=== PATIENT | male | born 1995 | race Caucasian/White ===

== ENCOUNTER 2024-08-27 23:40 | Inpatient (IN) | payer OTHER ==
[~2024-08-27] VITALS: Ht 175.3 cm; Wt 63.7 kg
[2024-08-28] VITALS (8 sets, daily range): PULSE 59–130; RESP 18–28; O2SAT 0–100
[2024-08-28] MEDS ORDERED: MIDAZOLAM HCL 100 MG in DEXT 5% WATER 80 ML IV ONE (00:15)
[2024-08-28] MEDS: PROPOFOL 10MG/ML 100ML 100 ML IV ONE (00:15)
[2024-08-28 00:46] LABS: BASOPHILS % 0.2 % (0.0-2.0); EOSINOPHILS % 0.2 % (0.0-5.0); HEMATOCRIT. 45.5 % (42.0-52.0); HEMOGLOBIN. 14.7 g/dL (14.0-18.0); MEAN CORPUSCULAR HEMOGLOBIN 28.2 pg (28.0-32.0); MEAN CORPUSCULAR HGB CONC 32.3 g/dL (31.0-37.0); MEAN CORPUSCULAR VOLUME 87.2 fL (80.0-94.0); MEAN PLATELET VOLUME 7.4 fl (7.4-10.4); MONOCYTES % 5.5 % (2.0-8.0); NEUTROPHILS % 69.1 % (40.0-76.0); PLATELET 340 x1000/uL (130-400); RED BLOOD CELL COUNT 5.22 mill/uL (4.7-6.1); RED CELL DISTRIBUTION WIDTH 17.8 % (11.6-14.6); WHITE BLOOD COUNT 13.8 x1000/uL (4.5-11.0)
[2024-08-28 00:55] LABS: CLARITY URINE CLEAR (CLEAR); COLOR URINE DARK YELLOW (YELLOW); GLUCOSE URINE NEGATIVE (NEGATIVE); KETONES URINE 1+ (NEGATIVE); LEUKOCYTE ESTERASE URINE NEGATIVE (NEGATIVE); NITRITE URINE NEGATIVE (NEGATIVE); OCCULT BLOOD URINE NEGATIVE (NEGATIVE); PH URINE 5.5 (4.5-8.0); PROTEIN URINE 2+ (NEGATIVE); SPECIFIC GRAVITY URINE 1.034 (1.005-1.030)
[2024-08-28 00:56] LABS: AMMONIA 22 uMol/L (<32)
[2024-08-28] MEDS: ROCURONIUM BROMIDE 10MG/ML VIAL 5ML IV ONE (01:01)
[2024-08-28 01:02] LABS: *AMPHETAMINES SCREEN URINE PRESUMPTIVE POSITIVE (NEGATIVE); *BARBITURATES SCREEN URINE NEGATIVE (NEGATIVE); *BENZODIAZEPINES SCREEN URINE NEGATIVE (NEGATIVE); *COCAINE SCREEN URINE NEGATIVE (NEGATIVE); METHADONE URINE SCREEN NEGATIVE (NEGATIVE); OPIATES URINE SCREEN NEGATIVE (NEGATIVE)
[2024-08-28 01:03] LABS: CANNABINOID URINE SCREEN PRESUMPTIVE POSITIVE (NEGATIVE); CARBON DIOXIDE 18 mEq/L (21-32); CHLORIDE 107 mEq/L (98-107); ECSTASY MDMA SCREEN URINE CONF.TEST INDICATED (NEGATIVE); PHENCYCLIDINE URINE SCREEN NEGATIVE (NEGATIVE); POTASSIUM 3.9 mEq/L (3.5-5.1); SODIUM 139 mEq/L (136-145)
[2024-08-28 01:04] LABS: CALCIUM 9.9 mg/dL (8.7-10.4)
[2024-08-28 01:08] LABS: CREATININE 1.1 mg/dL (0.6-1.3)
[2024-08-28 01:09] LABS: GLUCOSE 131 mg/dL (70-105); UREA NITROGEN BLOOD 14 mg/dL (9-23)
[2024-08-28 01:10] LABS: ACETAMINOPHEN < 2 ug/mL (10-30); ALANINE AMINOTRANSFERASE 22 IU/L (10-49); ALBUMIN 4.4 g/dL (3.2-4.8); ASPARTATE AMINOTRANSFERASE 26 IU/L (<34); CREATINE KINASE 434 IU/L (46-171)
[2024-08-28 01:11] LABS: BILIRUBIN DIRECT 0.1 mg/dL (<=3.0); BILIRUBIN TOTAL 0.4 mg/dL (0.1-1.0); PROTEIN TOTAL 8.7 g/dL (6.0-8.3)
[2024-08-28] MEDS: LORAZEPAM 2MG/ML INJ IV ONE (01:17)
[2024-08-28 01:24] LABS: BG BASE EXCESS -9.4 mmol/L (-2.0-3.0); BG CARBOXYHEMOGLOBIN 0.7 % (0.5-1.5); BG DEOXYHEMOGLOBIN 3.8 % (0.0-5.0); BG FRACTION INSPIRED OXYGEN 30; BG HCO3 ACT 16.6 mmol/L (21.0-28.0); BG METHEMOGLOBIN 0.3 % (0.5-1.5); BG OXYGEN SATURATION 96.2 % (94.0-98.0); BG OXYHEMOGLOBIN 95.2 % (94.0-98.0); BG PCO2 36.7 mmHg (35.0-48.0); BG PH 7.274 (7.350-7.450); BG PO2 98.7 mmHg (83.0-108.0); BG SAMPLE SITE RIGHT BRACHIAL; BG TOTAL HEMOGLOBIN 14.4 g/dL (13.5-17.5); BG VENT MODE VENT - AC
[2024-08-28 01:48] LABS: ETHANOL BLOOD < 10 mg/dL (<10)
[2024-08-28] MEDS ORDERED: MAGNESIUM/ALUMINUM HYDROXIDE/SIMETHICONE 30ML UDC PO PRN (03:00)
[2024-08-28] MEDS ORDERED: IPRATROPIUM/ALBUTEROL 0.5-3(2.5)MG/3ML NEB HHN PRN (03:00)
[2024-08-28] MEDS ORDERED: CLONIDINE 0.1MG TABLET PO PRN (03:00)
[2024-08-28] MEDS ORDERED: ONDANSETRON HCL 4MG/2ML INJ IV PRN (03:00)
[2024-08-28] MEDS ORDERED: DOCUSATE SODIUM 100MG CAPSULE PO PRN (03:00)
[2024-08-28] MEDS ORDERED: GUAIFENESIN 200MG/10ML SUGAR FREE UDC PO PRN (03:00)
[2024-08-28] MEDS ORDERED: ACETAMINOPHEN 325MG TABLET PO PRN ×2 (03:00)
[2024-08-28] MEDS: ATROPINE SULFATE 1MG/10ML SYR IV NR (03:03)
[2024-08-28 03:14] LABS: RBC URINE 0-2 /hpf (0-2); SQUAMOUS EPITHELIAL CELL URINE NONE SEEN /lpf (RARE/1+); WBC URINE 0-2 /hpf (0-2)
[2024-08-28 03:16] LABS: BACTERIA URINE NONE SEEN
[2024-08-28] MEDS: MVI, ADULT NO.1 10 ML, FOLIC ACID 1 MG, THIAMINE HCL 100 MG in SODIUM CHLORIDE 0.9% 1,0... IV NR (04:11)
[2024-08-28] MEDS ORDERED: SODIUM BICARBONATE 8.4% 50MEQ/50ML SYR IV NR (05:00)
[2024-08-28] MEDS ORDERED: VANCOMYCIN 1.25GM PMX (XELLIA) 250 ML IV NR (06:00)
[2024-08-28 06:24] LABS: CREATINE KINASE MB FRACTION 15.1 ng/mL (0.5-3.6); TROPONIN I HIGH SENSITIVITY 5 ng/L (3.0-53)
[2024-08-28 06:26] LABS: CREATINE KINASE 1122 IU/L (46-171)
[2024-08-28 10:48] LABS: BG BASE EXCESS -8.7 mmol/L (-2.0-3.0); BG CARBOXYHEMOGLOBIN 0.6 % (0.5-1.5); BG DEOXYHEMOGLOBIN 13.2 % (0.0-5.0); BG FRACTION INSPIRED OXYGEN 30; BG HCO3 ACT 18.4 mmol/L (21.0-28.0); BG METHEMOGLOBIN 0.1 % (0.5-1.5); BG OXYGEN SATURATION 86.7 % (94.0-98.0); BG OXYHEMOGLOBIN 86.1 % (94.0-98.0); BG PCO2 43.8 mmHg (35.0-48.0); BG PH 7.241 (7.350-7.450); BG PO2 61.3 mmHg (83.0-108.0); BG SAMPLE SITE RIGHT RADIAL; BG VENT MODE VENT - AC
[2024-08-28] MEDS: MIDAZOLAM 100MG/100ML PMX 100 ML IV NR (11:10)
[2024-08-28] MEDS: PIPERACILLIN/TAZO 3.375G/50ML 50 ML IV SCH (13:16)
[2024-08-28] MEDS: PANTOPRAZOLE SODIUM 40 MG/VIAL IV SCH (13:17)
[2024-08-28] MEDS: SODIUM BICARBONATE 8.4% 50MEQ/50ML SYR IV NR (13:17)
[2024-08-28] MEDS: SODIUM CHLORIDE 0.9% (SEPSIS BOLUS) IV ONE (13:40)
[2024-08-28] MEDS: FENTANYL CITRATE/PF 1,000 MCG in SODIUM CHLORIDE 0.9% 80 ML IV PRN (14:25)
[2024-08-28] MEDS ORDERED: MIDAZOLAM 100MG/100ML PMX 100 ML IV PRN (15:00)
[2024-08-28] MEDS ORDERED: FENTANYL CITRATE/PF 1,000 MCG in SODIUM CHLORIDE 0.9% 80 ML IV PRN (15:00)
[2024-08-28] MEDS: VANCOMYCIN 1.25GM PMX (XELLIA) 250 ML IV NR (15:39)
[2024-08-28 16:08] LABS: CREATINE KINASE MB FRACTION 12.2 ng/mL (0.5-3.6)
[2024-08-28] MEDS: MIDAZOLAM 100MG/100ML PMX 100 ML IV PRN (18:39)
[2024-08-28] MEDS: PROPOFOL 10MG/ML 100ML 100 ML IV PRN (18:41)
[2024-08-29] VITALS (7 sets, daily range): PULSE 107–129; RESP 26–33; O2SAT 97–100
[2024-08-29] MEDS: MAGNESIUM 2 G PREMIX 50 ML IV NR (00:30)
[2024-08-29] MEDS: VANCOMYCIN 750MG PMX (XELLIA) 150 ML IV SCH (01:56)
[2024-08-29] MEDS: DEXT 5%/0.45% NACL 1000ML 1,000 ML IV SCH (02:15)
[2024-08-29] MEDS: ACETAMINOPHEN 325MG SUPP PR NR (04:10)
[2024-08-29 05:59] LABS: BASOPHILS % 0.3 % (0.0-2.0); EOSINOPHILS % 0.1 % (0.0-5.0); HEMATOCRIT. 39.1 % (42.0-52.0); HEMOGLOBIN. 13.1 g/dL (14.0-18.0); LYMPHOCYTES % 8.2 % (20.0-50.0); MEAN CORPUSCULAR HEMOGLOBIN 28.5 pg (28.0-32.0); MEAN CORPUSCULAR HGB CONC 33.4 g/dL (31.0-37.0); MEAN CORPUSCULAR VOLUME 85.3 fL (80.0-94.0); MEAN PLATELET VOLUME 7.7 fl (7.4-10.4); MONOCYTES % 3.1 % (2.0-8.0); NEUTROPHILS % 88.3 % (40.0-76.0); PLATELET 277 x1000/uL (130-400); RED BLOOD CELL COUNT 4.59 mill/uL (4.7-6.1); RED CELL DISTRIBUTION WIDTH 17.8 % (11.6-14.6); WHITE BLOOD COUNT 9.7 x1000/uL (4.5-11.0)
[2024-08-29 06:31] LABS: CHLORIDE 108 mEq/L (98-107); POTASSIUM 4.6 mEq/L (3.5-5.1); SODIUM 138 mEq/L (136-145)
[2024-08-29 06:32] LABS: CALCIUM 8.6 mg/dL (8.7-10.4); CARBON DIOXIDE 23 mEq/L (21-32)
[2024-08-29 06:37] LABS: CREATININE 0.9 mg/dL (0.6-1.3); GLUCOSE 127 mg/dL (70-105); TRIGLYCERIDE 166 mg/dL (0-150); UREA NITROGEN BLOOD 14 mg/dL (9-23)
[2024-08-29 06:38] LABS: LDL CHOLESTEROL 37 mg/dL (5-100)
[2024-08-29 06:39] LABS: CHOLESTEROL 88 mg/dL (<200); HDL CHOLESTEROL 27 mg/dL (>55)
[2024-08-29 06:42] LABS: THYROID STIMULATING HORMONE 1.29 uIU/mL (0.55-4.78)
[2024-08-29] MEDS ORDERED: ACETAMINOPHEN 650MG SUPP PR PRN (06:45)
[2024-08-29] MEDS ORDERED: ACETAMINOPHEN 325MG TABLET NG PRN (09:00)
[2024-08-29] MEDS: FOLIC ACID 1MG TABLET PO SCH (09:00)
[2024-08-29] MEDS: THIAMINE HCL 100MG TABLET PO SCH (09:00)
[2024-08-29] MEDS: PROPOFOL 10MG/ML 100ML 100 ML IV PRN (10:20)
[2024-08-29 11:15] LABS: BG BASE EXCESS -2.9 mmol/L (-2.0-3.0); BG CARBOXYHEMOGLOBIN 1.2 % (0.5-1.5); BG DEOXYHEMOGLOBIN 0.9 % (0.0-5.0); BG FRACTION INSPIRED OXYGEN 100; BG HCO3 ACT 20.8 mmol/L (21.0-28.0); BG METHEMOGLOBIN 0.3 % (0.5-1.5); BG OXYGEN SATURATION 99.1 % (94.0-98.0); BG OXYHEMOGLOBIN 97.6 % (94.0-98.0); BG PCO2 33.2 mmHg (35.0-48.0); BG PH 7.415 (7.350-7.450); BG PO2 145.7 mmHg (83.0-108.0); BG SAMPLE SITE RIGHT RADIAL; BG TOTAL HEMOGLOBIN 14.1 g/dL (13.5-17.5); BG VENT MODE VENT - AC
[2024-08-29] MEDS: ACETAMINOPHEN 650MG SUPP PR NR (13:56)
[2024-08-29] MEDS: VANCOMYCIN 1.25GM PMX (XELLIA) 250 ML IV SCH (13:58)
[2024-08-29] MEDS ORDERED: PROPOFOL 10MG/ML 100ML 100 ML IV PRN (16:00)
[2024-08-29] MEDS: BROMOCRIPTINE MESYLATE 2.5 MG TABLET PO STA (16:29)
[2024-08-29 17:37] LABS: IRON 14 ug/dL (65-175)
[2024-08-29 17:40] LABS: PHOSPHORUS 3.3 mg/dL (2.5-4.9); TOTAL IRON BINDING CAPACITY 422 ug/dl (250-425)
[2024-08-30] VITALS (28 sets, daily range): BP systolic 98–113; BP diastolic 64–85; PULSE 93–113; RESP 20–33; TEMP 37.00296–37.252; O2SAT 98–100
[2024-08-30] MEDS: ACETAMINOPHEN 650MG SUPP PR PRN (01:03)
[2024-08-30] MEDS: BROMOCRIPTINE MESYLATE 2.5 MG TABLET PO NR (08:34)
[2024-08-30 08:37] LABS: HEMATOCRIT 37.8 % (42.0-52.0); HEMOGLOBIN 12.3 g/dL (14.0-18.0); MEAN CORPUSCULAR HEMOGLOBIN 28.1 pg (28.0-32.0); MEAN CORPUSCULAR HGB CONC 32.6 g/dL (31.0-37.0); MEAN CORPUSCULAR VOLUME 86.1 fL (80.0-94.0); PLATELET 200 x1000/uL (130-400); RED BLOOD CELL COUNT 4.39 mill/uL (4.7-6.1); RED CELL DISTRIBUTION WIDTH 17.9 % (11.6-14.6); WHITE BLOOD COUNT 9.5 x1000/uL (4.5-11.0)
[2024-08-30 08:46] LABS: CHLORIDE 106 mEq/L (98-107); POTASSIUM 3.9 mEq/L (3.5-5.1); SODIUM 136 mEq/L (136-145)
[2024-08-30 08:47] LABS: CARBON DIOXIDE 21 mEq/L (21-32)
[2024-08-30 08:48] LABS: CALCIUM 8.6 mg/dL (8.7-10.4)
[2024-08-30 08:52] LABS: CREATININE 0.8 mg/dL (0.6-1.3); GLUCOSE 108 mg/dL (70-105); UREA NITROGEN BLOOD 13 mg/dL (9-23)
[2024-08-30 10:31] LABS: BG BASE EXCESS -3.4 mmol/L (-2.0-3.0); BG CARBOXYHEMOGLOBIN 0.8 % (0.5-1.5); BG DEOXYHEMOGLOBIN 1.3 % (0.0-5.0); BG FRACTION INSPIRED OXYGEN 50; BG HCO3 ACT 20.9 mmol/L (21.0-28.0); BG METHEMOGLOBIN 0.3 % (0.5-1.5); BG OXYGEN SATURATION 98.7 % (94.0-98.0); BG OXYHEMOGLOBIN 97.6 % (94.0-98.0); BG PCO2 35.5 mmHg (35.0-48.0); BG PH 7.388 (7.350-7.450); BG PO2 125.8 mmHg (83.0-108.0); BG SAMPLE SITE RIGHT RADIAL; BG TOTAL HEMOGLOBIN 13.7 g/dL (13.5-17.5); BG VENT MODE VENT - AC
[2024-08-30] MEDS ORDERED: DEXMEDETOMIDINE 400 MCG/100 ML 100 ML IV PRN (15:00)
[2024-08-30] MEDS: PROPOFOL 10MG/ML 100ML 100 ML IV PRN (18:06)
[2024-08-31] VITALS (104 sets, daily range): BP systolic 82–131; BP diastolic 61–91; PULSE 85–114; RESP 8–26; TEMP 36.6–37.503; O2SAT 93–100
[2024-08-31 06:22] LABS: BASOPHILS % 0.1 % (0.0-2.0); EOSINOPHILS % 1.4 % (0.0-5.0); HEMATOCRIT. 33.6 % (42.0-52.0); HEMOGLOBIN. 11.2 g/dL (14.0-18.0); LYMPHOCYTES % 9.7 % (20.0-50.0); MEAN CORPUSCULAR HEMOGLOBIN 28.4 pg (28.0-32.0); MEAN CORPUSCULAR HGB CONC 33.5 g/dL (31.0-37.0); MEAN CORPUSCULAR VOLUME 84.7 fL (80.0-94.0); MONOCYTES % 4.7 % (2.0-8.0); NEUTROPHILS % 84.1 % (40.0-76.0); PLATELET 197 x1000/uL (130-400); RED BLOOD CELL COUNT 3.97 mill/uL (4.7-6.1); RED CELL DISTRIBUTION WIDTH 17.1 % (11.6-14.6); WHITE BLOOD COUNT 6.9 x1000/uL (4.5-11.0)
[2024-08-31 06:33] LABS: CHLORIDE 106 mEq/L (98-107); POTASSIUM 3.8 mEq/L (3.5-5.1); SODIUM 138 mEq/L (136-145)
[2024-08-31 06:34] LABS: CALCIUM 8.7 mg/dL (8.7-10.4); CARBON DIOXIDE 23 mEq/L (21-32)
[2024-08-31 06:39] LABS: CREATININE 0.7 mg/dL (0.6-1.3); GLUCOSE 106 mg/dL (70-105); UREA NITROGEN BLOOD 10 mg/dL (9-23)
[2024-08-31 06:49] LABS: CREATINE KINASE 1555 IU/L (46-171)
[2024-08-31] MEDS: PROPOFOL 10MG/ML 100ML 100 ML IV PRN (07:01)
[2024-08-31] MEDS ORDERED: AZITHROMYCIN 250 MG in DEXT 5% WATER 250 ML IV SCH (08:30)
[2024-08-31 08:52] LABS: BG CARBOXYHEMOGLOBIN 0.3 % (0.5-1.5); BG DEOXYHEMOGLOBIN 1.2 % (0.0-5.0); BG FRACTION INSPIRED OXYGEN 50; BG HCO3 ACT 27.2 mmol/L (21.0-28.0); BG METHEMOGLOBIN 0.3 % (0.5-1.5); BG OXYGEN SATURATION 98.8 % (94.0-98.0); BG OXYHEMOGLOBIN 98.2 % (94.0-98.0); BG PCO2 45.1 mmHg (35.0-48.0); BG PH 7.398 (7.350-7.450); BG SAMPLE SITE RIGHT RADIAL; BG TOTAL HEMOGLOBIN 11.7 g/dL (13.5-17.5); BG VENT MODE VENT - AC
[2024-08-31 10:34] LABS: BASOPHILS % 0.1 % (0.0-2.0); EOSINOPHILS % 1.6 % (0.0-5.0); HEMOGLOBIN. 11.5 g/dL (14.0-18.0); LYMPHOCYTES % 9.3 % (20.0-50.0); MEAN CORPUSCULAR HEMOGLOBIN 27.9 pg (28.0-32.0); MEAN CORPUSCULAR HGB CONC 32.8 g/dL (31.0-37.0); MEAN CORPUSCULAR VOLUME 85.1 fL (80.0-94.0); MEAN PLATELET VOLUME 7.6 fl (7.4-10.4); MONOCYTES % 4.7 % (2.0-8.0); NEUTROPHILS % 84.3 % (40.0-76.0); PLATELET 184 x1000/uL (130-400); RED BLOOD CELL COUNT 4.11 mill/uL (4.7-6.1); RED CELL DISTRIBUTION WIDTH 17.3 % (11.6-14.6); WHITE BLOOD COUNT 6.4 x1000/uL (4.5-11.0)
[2024-08-31 10:38] LABS: CARBON DIOXIDE 25 mEq/L (21-32); CHLORIDE 106 mEq/L (98-107); POTASSIUM 3.7 mEq/L (3.5-5.1); SODIUM 139 mEq/L (136-145)
[2024-08-31 10:39] LABS: CALCIUM 8.4 mg/dL (8.7-10.4)
[2024-08-31 10:44] LABS: CREATININE 0.7 mg/dL (0.6-1.3); GLUCOSE 109 mg/dL (70-105); UREA NITROGEN BLOOD 8 mg/dL (9-23)
[2024-08-31 10:45] LABS: ALANINE AMINOTRANSFERASE 22 IU/L (10-49); ALBUMIN 3.1 g/dL (3.2-4.8); ASPARTATE AMINOTRANSFERASE 53 IU/L (<34)
[2024-08-31 10:46] LABS: BILIRUBIN TOTAL 0.3 mg/dL (0.1-1.0); PROTEIN TOTAL 6.1 g/dL (6.0-8.3)
[2024-08-31] MEDS ORDERED: LIDOCAINE HCL 1% 10 MG/ML 10ML VIAL ONE (10:56)
[2024-08-31] MEDS: AZITHROMYCIN 500MG in NS 250ML IV SCH (12:53)
[2024-08-31] MEDS: VANCOMYCIN 1000MG/250ML 250 ML IV SCH (14:19)
[2024-08-31] MEDS: DEXMEDETOMIDINE 400 MCG/100 ML 100 ML IV PRN (18:14)
[2024-08-31] MEDS: HALOPERIDOL LACTATE 5MG/ML VIAL IM NR (18:46)
[2024-08-31] MEDS: LORAZEPAM 2MG/ML INJ IV PRN (21:53)
[2024-09-01] VITALS (51 sets, daily range): BP systolic 97–134; BP diastolic 57–96; PULSE 68–107; RESP 0–31; TEMP 37.1–37.5; O2SAT 81–98
[2024-09-01] MEDS: VANCOMYCIN 1.5GM PMX (XELLIA) 300 ML IV SCH (05:50)
[2024-09-01 06:22] LABS: HEMATOCRIT 33.1 % (42.0-52.0); HEMOGLOBIN 10.9 g/dL (14.0-18.0); MEAN CORPUSCULAR HEMOGLOBIN 28.2 pg (28.0-32.0); MEAN CORPUSCULAR VOLUME 85.3 fL (80.0-94.0); PLATELET 210 x1000/uL (130-400); RED BLOOD CELL COUNT 3.88 mill/uL (4.7-6.1); RED CELL DISTRIBUTION WIDTH 17.2 % (11.6-14.6); WHITE BLOOD COUNT 5.9 x1000/uL (4.5-11.0)
[2024-09-01 06:44] LABS: CHLORIDE 110 mEq/L (98-107); POTASSIUM 3.6 mEq/L (3.5-5.1); SODIUM 142 mEq/L (136-145)
[2024-09-01 06:45] LABS: CARBON DIOXIDE 23 mEq/L (21-32)
[2024-09-01 06:46] LABS: CALCIUM 8.6 mg/dL (8.7-10.4)
[2024-09-01 06:50] LABS: CREATININE 0.7 mg/dL (0.6-1.3); UREA NITROGEN BLOOD 11 mg/dL (9-23)
[2024-09-01 06:51] LABS: GLUCOSE 97 mg/dL (70-105)
[2024-09-01 06:52] LABS: ALANINE AMINOTRANSFERASE 27 IU/L (10-49); ALBUMIN 3.1 g/dL (3.2-4.8); ASPARTATE AMINOTRANSFERASE 61 IU/L (<34)
[2024-09-01 06:53] LABS: BILIRUBIN DIRECT 0.1 mg/dL (<=3.0); BILIRUBIN TOTAL 0.3 mg/dL (0.1-1.0); PHOSPHORUS 2.2 mg/dL (2.5-4.9); PROTEIN TOTAL 6.5 g/dL (6.0-8.3)
[2024-09-01] MEDS: MAGNESIUM 2 G PREMIX 50 ML IV NR (08:26)
[2024-09-01] MEDS: DEXT 5%/LACTATED RINGERS 1,000 ML IV SCH (08:52)
[2024-09-01 09:53] LABS: BG CARBOXYHEMOGLOBIN 0.6 % (0.5-1.5); BG DEOXYHEMOGLOBIN 2.7 % (0.0-5.0); BG FRACTION INSPIRED OXYGEN 50; BG HCO3 ACT 23.3 mmol/L (21.0-28.0); BG METHEMOGLOBIN 0.3 % (0.5-1.5); BG OXYGEN SATURATION 97.3 % (94.0-98.0); BG OXYHEMOGLOBIN 96.4 % (94.0-98.0); BG PCO2 36.7 mmHg (35.0-48.0); BG PO2 94.5 mmHg (83.0-108.0); BG SAMPLE SITE RIGHT RADIAL; BG TOTAL HEMOGLOBIN 8.1 g/dL (13.5-17.5); BG VENT MODE MASK - VENTI
[2024-09-01] MEDS: POTASSIUM PHOSPHATE 30 MMOL in SODIUM CHLORIDE 0.9% 490 ML IV NR (11:50)
[2024-09-01] MEDS ORDERED: VANCOMYCIN 1GM/200ML PMX (BAXTER) IV SCH (14:00)
[2024-09-02] VITALS (37 sets, daily range): BP systolic 88–129; BP diastolic 56–96; PULSE 55–116; RESP 14–27; TEMP 36.4–37.2; O2SAT 87–97
[2024-09-02 05:37] LABS: HEMATOCRIT 33.6 % (42.0-52.0); HEMOGLOBIN 11.1 g/dL (14.0-18.0); MEAN CORPUSCULAR HEMOGLOBIN 27.9 pg (28.0-32.0); MEAN CORPUSCULAR HGB CONC 33.1 g/dL (31.0-37.0); MEAN CORPUSCULAR VOLUME 84.5 fL (80.0-94.0); PLATELET 239 x1000/uL (130-400); RED BLOOD CELL COUNT 3.98 mill/uL (4.7-6.1); WHITE BLOOD COUNT 5.7 x1000/uL (4.5-11.0)
[2024-09-02 05:42] LABS: CHLORIDE 108 mEq/L (98-107); POTASSIUM 3.6 mEq/L (3.5-5.1); SODIUM 139 mEq/L (136-145)
[2024-09-02 05:43] LABS: CALCIUM 8.2 mg/dL (8.7-10.4); CARBON DIOXIDE 22 mEq/L (21-32)
[2024-09-02 05:48] LABS: CREATININE 0.6 mg/dL (0.6-1.3); GLUCOSE 113 mg/dL (70-105); UREA NITROGEN BLOOD 12 mg/dL (9-23)
[2024-09-02 05:50] LABS: PHOSPHORUS 2.3 mg/dL (2.5-4.9)
[2024-09-02 06:02] LABS: VITAMIN B12 SERUM 536 pg/mL (211-911)
[2024-09-02] MEDS: MAGNESIUM 2 G PREMIX 50 ML IV NR (09:23)
== END 2024-09-02 16:02 | disposition left against medical advice (07) | DRG 720 ==
LOC: ER 23:40 → EDBEDREQ 08-28 01:41 → EDBEDREQTM 08-28 01:41 → CVICU 08-30 17:21
PROVIDERS: ADMIT Internal Medicine; ATTEND Internal Medicine
PROC: 0BH17EZ Insertion of Endotracheal Airway into Trachea, Via Natural or Artificial Opening (ICD-10-PCS; principal; 2024-08-28)
PROC: 5A1945Z Respiratory Ventilation, 24-96 Consecutive Hours (ICD-10-PCS; 2024-08-28)
PROC: 5A09357 Assistance with Respiratory Ventilation, Less than 24 Consecutive Hours, Continuous Positive Airway Pressure (ICD-10-PCS; 2024-08-28)
PROC: 02HV33Z Insertion of Infusion Device into Superior Vena Cava, Percutaneous Approach (ICD-10-PCS; 2024-08-31)
PROC: B548ZZA Ultrasonography of Superior Vena Cava, Guidance (ICD-10-PCS; 2024-08-31)
PROC: 0BP1XDZ Removal of Intraluminal Device from Trachea, External Approach (ICD-10-PCS; 2024-08-31)
PROC: 4A10X4Z Monitoring of Central Nervous Electrical Activity, External Approach (ICD-10-PCS; 2024-09-02)
DX: A41.9 Sepsis, unspecified organism (principal); J96.01 Acute respiratory failure with hypoxia; J69.0 Pneumonitis due to inhalation of food and vomit; G92.9 Unspecified toxic encephalopathy; E87.20 Acidosis, unspecified; N17.9 Acute kidney failure, unspecified; J15.69 Pneumonia due to other Gram-negative bacteria; Z53.29 Procedure and treatment not carried out because of patient's decision for other reasons; F15.10 Other stimulant abuse, uncomplicated; R73.9 Hyperglycemia, unspecified; M62.82 Rhabdomyolysis; E83.42 Hypomagnesemia; Z79.899 Other long term (current) drug therapy
CPT/HCPCS: 36415; 36573; 36600; 70551; 71045; 74176; 80048; 80053; 80061; 80076; 80202; 80305; 80307; 80320; 80329; 81003; 82010; 82140; 82375; 82550; 82553; 82607; 82805; 82962; 83540; 83605; 83735; 84100; 84145; 84439; 84443; 84484; 85025; 85027; 87070; 87077; 87186; 93005; 94003; 94070; 95816; 99291; C1725; J0456; J0461; J1630; J2003; J2060; J2250; J2470; J2543; J2704; J3010; J3370; J3411; J3475; J3490; J7030; J7040; J7050; J7060; J7121; Q9957; G0480